=== PATIENT | female | born 1955 | race African-American/Black ===

== ENCOUNTER 2023-10-09 19:31 | Emergency (ER) | payer MEDICARE, MEDICAID ==
[~2023-10-09] VITALS: Ht 167.6 cm; Wt 69.0 kg
[2023-10-09 19:36] VITALS: TEMP 98.9; O2SAT 99
[2023-10-09] MEDS ORDERED: IPRATROPIUM/ALBUTEROL 0.5-3(2.5)MG/3ML NEB HHN ONE (19:45)
[2023-10-09] MEDS ORDERED: ALBUTEROL (0.083%) 2.5MG/3ML NEB HHN ONE (19:45)
[2023-10-09] MEDS ORDERED: METHYLPREDNISOLONE SOD SUCC 125MG/2ML (ACT-O-VIAL) IV ONE (19:45)
[2023-10-09 19:46] VITALS: RESP 35
[2023-10-09 20:39] VITALS: RESP 27
[2023-10-09 20:46] LABS: BASOPHILS % 0.6 % (0.0-2.0); EOSINOPHILS % 1.1 % (0.0-5.0); HEMATOCRIT. 35.3 % (36.0-48.0); HEMOGLOBIN. 11.5 g/dL (12.0-16.0); MEAN CORPUSCULAR HEMOGLOBIN 27.4 pg (28.0-32.0); MEAN CORPUSCULAR HGB CONC 32.6 g/dL (31.0-37.0); MEAN CORPUSCULAR VOLUME 83.9 fL (81.0-99.0); MEAN PLATELET VOLUME 9.5 fl (7.4-10.4); MONOCYTES % 8.8 % (2.0-8.0); NEUTROPHILS % 81.5 % (40.0-76.0); PLATELET 114 x1000/uL (130-400); RED BLOOD CELL COUNT 4.21 mill/uL (4.2-5.4); RED CELL DISTRIBUTION WIDTH 17.6 % (11.6-14.6); WHITE BLOOD COUNT 7.5 x1000/uL (4.5-11.0)
[2023-10-09 21:01] LABS: ALANINE AMINOTRANSFERASE 32 IU/L (10-49); ALBUMIN 3.8 g/dL (3.2-4.8); ASPARTATE AMINOTRANSFERASE 35 IU/L (<34); BILIRUBIN TOTAL 0.4 mg/dL (0.1-1.0); CALCIUM 9.6 mg/dL (8.7-10.4); CARBON DIOXIDE 28 mEq/L (21-32); CHLORIDE 102 mEq/L (98-107); GLUCOSE 122 mg/dL (70-105); POTASSIUM 4.1 mEq/L (3.5-5.1); PROTEIN TOTAL 6.5 g/dL (6.0-8.3); SODIUM 142 mEq/L (136-145); UREA NITROGEN BLOOD 38 mg/dL (9-23)
[2023-10-09 21:06] LABS: CREATININE 7.3 mg/dL (0.6-1.0)
[2023-10-09 21:07] LABS: TROPONIN I HIGH SENSITIVITY 72 ng/L (3.0-34)
[2023-10-09 22:00] VITALS: BP 182/91; PULSE 108; RESP 22
[2023-10-09] MEDS ORDERED: ASPIRIN 325MG EC TABLET PO ONE (22:00)
[2023-10-10] MEDS ORDERED: HYDR25TA MT (09:55)
[2023-10-10] MEDS ORDERED: SEVE800T25 PO (09:57)
[2023-10-10] MEDS ORDERED: AMLO10TA80 MT (09:57)
[2023-10-11] MEDS ORDERED: ASPI-1406 PO (14:16)
== END 2023-10-09 22:08 | disposition left against medical advice (07) ==
LOC: ER 19:31 → EDBEDREQ 21:13 → ER 22:08 → CANBEDREQ 10-11 10:17
DX: J44.1 Chronic obstructive pulmonary disease with (acute) exacerbation (principal); I10 Essential (primary) hypertension; F17.200 Nicotine dependence, unspecified, uncomplicated; Z99.2 Dependence on renal dialysis
CPT/HCPCS: 99291; 96374; 80053; 83880; 85025; 84484; 36415; 71045; 94640; 93005; J2930

== ENCOUNTER 2023-10-13 19:45 | Emergency (ER) | payer MEDICARE, MEDICAID ==
[~2023-10-13] VITALS: Ht 167.6 cm; Wt 70.0 kg
[~2023-10-13 19:45] MED LIST: AMLO10TA80 MT; ASPI-1406 PO; HYDR25TA MT; SEVE800T25 PO
[2023-10-13 19:54] VITALS: TEMP 98.5; O2SAT 99
[2023-10-13 22:50] VITALS: BP 156/86; PULSE 103; RESP 16
== END 2023-10-13 22:54 | disposition home or self-care (01) ==
LOC: ER 19:45
DX: Z00.00 Encounter for general adult medical examination without abnormal findings (principal); J44.9 Chronic obstructive pulmonary disease, unspecified; I10 Essential (primary) hypertension
CPT/HCPCS: 99283

== ENCOUNTER 2023-11-27 07:43 | Emergency (ER) | payer MEDICARE, MEDICAID ==
[~2023-11-27] VITALS: Ht 167.6 cm; Wt 64.0 kg
[~2023-11-27 07:43] MED LIST changes: +P20 PO
[2023-11-27 07:58] VITALS: BP 166/62; RESP 19; O2SAT 89
[2023-11-27 08:00] VITALS: PULSE 90
== END 2023-11-27 10:42 | disposition left against medical advice (07) ==
LOC: ER 07:43
DX: R06.02 Shortness of breath (principal); Z53.21 Procedure and treatment not carried out due to patient leaving prior to being seen by health care provider
CPT/HCPCS: 93005; 99281

== ENCOUNTER 2023-12-04 17:00 | Emergency (ER) | payer MEDICARE, MEDICAID ==
[~2023-12-04] VITALS: Ht 160 cm; Wt 61.0 kg
[2023-12-04] MEDS ORDERED: PREDNISONE 20MG TABLET PO STA (17:19)
[2023-12-04 17:30] VITALS: BP 146/89; TEMP 98
[2023-12-04 17:45] VITALS: PULSE 135; RESP 38; O2SAT 88
[2023-12-04] MEDS ORDERED: DEXAMETHASONE 4MG/ML 1ML VIAL IV ONE (17:45)
[2023-12-04] MEDS: ALBUTEROL (0.083%) 2.5MG/3ML NEB HHN STA (17:46)
[2023-12-04] MEDS: IPRATROPIUM BROMIDE (0.02%) 0.5MG/2.5ML NEB HHN STA (17:46)
[2023-12-04 17:54] LABS: BASOPHILS % 0.3 % (0.0-2.0); EOSINOPHILS % 0.4 % (0.0-5.0); HEMATOCRIT. 33.6 % (36.0-48.0); MEAN CORPUSCULAR HEMOGLOBIN 28.7 pg (28.0-32.0); MEAN CORPUSCULAR HGB CONC 32.8 g/dL (31.0-37.0); MEAN CORPUSCULAR VOLUME 87.6 fL (81.0-99.0); MEAN PLATELET VOLUME 10.9 fl (7.4-10.4); MONOCYTES % 3.3 % (2.0-8.0); PLATELET 96 x1000/uL (130-400); RED BLOOD CELL COUNT 3.83 mill/uL (4.2-5.4); RED CELL DISTRIBUTION WIDTH 18.4 % (11.6-14.6); WHITE BLOOD COUNT 10.8 x1000/uL (4.5-11.0)
[2023-12-04 18:00] LABS: INR 1.1; PROTHROMBIN TIME 11.6 sec (9.6-11.0)
[2023-12-04 18:11] LABS: ALANINE AMINOTRANSFERASE 74 IU/L (10-49); ALBUMIN 3.8 g/dL (3.2-4.8); ASPARTATE AMINOTRANSFERASE 44 IU/L (<34); BILIRUBIN TOTAL 0.6 mg/dL (0.1-1.0); CALCIUM 9.3 mg/dL (8.7-10.4); CARBON DIOXIDE 26 mEq/L (21-32); CHLORIDE 98 mEq/L (98-107); GLUCOSE 127 mg/dL (70-105); POTASSIUM 4.2 mEq/L (3.5-5.1); PROTEIN TOTAL 6.5 g/dL (6.0-8.3); SODIUM 135 mEq/L (136-145); UREA NITROGEN BLOOD 70 mg/dL (9-23)
[2023-12-04 18:13] LABS: CREATININE 8.3 mg/dL (0.6-1.0); TROPONIN I HIGH SENSITIVITY 158 ng/L (3.0-34)
== END 2023-12-04 19:40 | disposition left against medical advice (07) ==
LOC: ER 17:00
DX: J44.1 Chronic obstructive pulmonary disease with (acute) exacerbation (principal); I10 Essential (primary) hypertension; Z79.899 Other long term (current) drug therapy
CPT/HCPCS: 80053; 85025; 85610; 84484; 36415; 71045; 94640; 93005; 99285; J7512; Z7610 ×3

== ENCOUNTER 2024-02-02 03:24 | Emergency (ER) | payer MEDICARE, MEDICAID ==
[~2024-02-02] VITALS: Ht 175.3 cm; Wt 70.0 kg
[2024-02-02 03:36] VITALS: RESP 22
[2024-02-02 03:42] VITALS: TEMP 98.4
[2024-02-02] MEDS ORDERED: ALBUTEROL (0.083%) 2.5MG/3ML NEB HHN STA (04:12)
[2024-02-02] MEDS ORDERED: IPRATROPIUM BROMIDE (0.02%) 0.5MG/2.5ML NEB HHN STA (04:12)
[2024-02-02] MEDS: METHYLPREDNISOLONE SOD SUCC 125MG/2ML (ACT-O-VIAL) IV STA (04:22)
[2024-02-02 05:50] VITALS: BP 130/56
[2024-02-02] MEDS: ALBUTEROL (0.083%) 2.5MG/3ML NEB HHN NR (06:26)
[2024-02-02 06:27] VITALS: PULSE 92; RESP 20; O2SAT 99
[2024-02-02] MEDS: IPRATROPIUM BROMIDE (0.02%) 0.5MG/2.5ML NEB HHN NR (06:27)
== END 2024-02-02 06:24 | disposition left against medical advice (07) ==
LOC: ER 04:13
DX: J44.9 Chronic obstructive pulmonary disease, unspecified (principal); I10 Essential (primary) hypertension; E11.9 Type 2 diabetes mellitus without complications; Z91.041 Radiographic dye allergy status; Z88.5 Allergy status to narcotic agent; Z53.21 Procedure and treatment not carried out due to patient leaving prior to being seen by health care provider
CPT/HCPCS: 71045; 94640; 96374; 99291; J2930; Z7610 ×3; 94660

== ENCOUNTER 2024-07-02 18:18 | Emergency (ER) | payer MEDICARE, BC ==
[~2024-07-02] VITALS: Ht 162.6 cm; Wt 54.0 kg
[~2024-07-02 18:18] MED LIST changes: -ASPI-1406 PO
[2024-07-02 18:19] VITALS: O2SAT 100
[2024-07-02 18:30] VITALS: BP 132/66; PULSE 87; RESP 18; TEMP 36.89184; O2SAT 100
[2024-07-02] MEDS ORDERED: ALBUTEROL (0.083%) 2.5MG/3ML NEB HHN STA (18:35)
[2024-07-02] MEDS ORDERED: IPRATROPIUM BROMIDE (0.02%) 0.5MG/2.5ML NEB HHN STA (18:35)
[2024-07-02] MEDS: PREDNISONE 20MG TABLET PO STA (19:06)
[2024-07-02] MEDS ORDERED: P20 MT (20:12)
[2024-07-02] MEDS ORDERED: ALBU6.7H15 INH (20:12)
[2024-07-15] MEDS ORDERED: AZIT500T8 PO (09:35)
[2024-07-15] MEDS ORDERED: ASPI-1160 PO (09:35)
[2024-07-15] MEDS ORDERED: CLON0.1T PO (09:35)
[2024-07-15] MEDS ORDERED: FURO40TA5 MT (09:35)
== END 2024-07-02 20:13 | disposition home or self-care (01) ==
LOC: ER 18:18
DX: J44.1 Chronic obstructive pulmonary disease with (acute) exacerbation (principal); I12.0 Hypertensive chronic kidney disease with stage 5 chronic kidney disease or end stage renal disease; N18.6 End stage renal disease; Z99.2 Dependence on renal dialysis; Z88.6 Allergy status to analgesic agent; Z88.5 Allergy status to narcotic agent; Z88.8 Allergy status to other drugs, medicaments and biological substances; Z96.653 Presence of artificial knee joint, bilateral
CPT/HCPCS: 99283; J7512; Z7610

== ENCOUNTER 2024-07-18 10:07 | Inpatient (IN) | payer MEDICARE, MEDICAID ==
[~2024-07-18] VITALS: Ht 167.6 cm; Wt 79.4 kg
[~2024-07-18 10:07] MED LIST changes: +ALBU6.7H15 INH; +ASPI-1160 PO; +AZIT500T8 PO; +CLON0.1T PO; +FURO40TA5 MT; +P20 MT
[2024-07-18] MEDS ORDERED: IPRATROPIUM BROMIDE (0.02%) 0.5MG/2.5ML NEB HHN STA (10:28)
[2024-07-18] MEDS ORDERED: ALBUTEROL (0.083%) 2.5MG/3ML NEB HHN STA (10:28)
[2024-07-18] MEDS: MAGNESIUM 2 G PREMIX 50 ML IV ONE (10:43)
[2024-07-18] MEDS: METHYLPREDNISOLONE SOD SUCC 125MG/2ML (ACT-O-VIAL) IV STA (10:43)
[2024-07-18 10:57] LABS: HEMATOCRIT. 25.8 % (36.0-48.0); HEMOGLOBIN. 8.1 g/dL (12.0-16.0); MEAN CORPUSCULAR HEMOGLOBIN 28.5 pg (28.0-32.0); MEAN CORPUSCULAR HGB CONC 31.3 g/dL (31.0-37.0); MEAN CORPUSCULAR VOLUME 90.8 fL (81.0-99.0); MEAN PLATELET VOLUME 9.8 fl (7.4-10.4); PLATELET 141 x1000/uL (130-400); RED BLOOD CELL COUNT 2.84 mill/uL (4.2-5.4); RED CELL DISTRIBUTION WIDTH 20.5 % (11.6-14.6); WHITE BLOOD COUNT 9.9 x1000/uL (4.5-11.0)
[2024-07-18 11:00] LABS: DIFFERENTIAL COMMENT 1
[2024-07-18 11:02] LABS: CHLORIDE 96 mEq/L (98-107); POTASSIUM 3.6 mEq/L (3.5-5.1); SODIUM 135 mEq/L (136-145)
[2024-07-18 11:03] LABS: CALCIUM 8.8 mg/dL (8.7-10.4); CARBON DIOXIDE 31 mEq/L (21-32)
[2024-07-18 11:08] LABS: CREATININE 4.2 mg/dL (0.6-1.0); GLUCOSE 174 mg/dL (70-105); UREA NITROGEN BLOOD 24 mg/dL (9-23)
[2024-07-18 11:15] LABS: TROPONIN I HIGH SENSITIVITY 569 ng/L (3.0-34)
[2024-07-18 11:32] LABS: ANISOCYTOSIS 3+; PLATELET ESTIMATE NORMAL
[2024-07-18 12:27] LABS: HEPATITIS B SURFACE ANTIGEN NEGATIVE (Negative)
[2024-07-18] MEDS: IPRATROPIUM BROMIDE (0.02%) 0.5MG/2.5ML NEB HHN NR (12:43)
[2024-07-18] MEDS: ALBUTEROL (0.083%) 2.5MG/3ML NEB HHN NR (12:43)
[2024-07-18 12:44] LABS: TROPONIN I HIGH SENSITIVITY 582 ng/L (3.0-34)
[2024-07-18 12:48] LABS: HEPATITIS A AB IGM NEGATIVE (Negative)
[2024-07-18 12:49] LABS: HEPATITIS B CORE AB IGM NEGATIVE (Negative); HEPATITIS C AB REACTIVE (Pos) (Negative)
[2024-07-18 13:10] VITALS: PULSE 95; RESP 22; O2SAT 95
[2024-07-18] MEDS: ENOXAPARIN 60MG/0.6ML SYR SUBCUT ONE (13:40)
[2024-07-18] MEDS: ASPIRIN 325MG TABLET PO ONE (13:45)
[2024-07-18] MEDS ORDERED: GUAIFENESIN 200MG/10ML SUGAR FREE UDC PO PRN (16:30)
[2024-07-18] MEDS ORDERED: ACETAMINOPHEN 325MG TABLET PO PRN ×2 (16:30)
[2024-07-18] MEDS ORDERED: CLONIDINE 0.1MG TABLET PO PRN (16:30)
[2024-07-18] MEDS ORDERED: ONDANSETRON HCL 4MG/2ML INJ IV PRN (16:30)
[2024-07-18] MEDS ORDERED: MAGNESIUM/ALUMINUM HYDROXIDE/SIMETHICONE 30ML UDC PO PRN (16:30)
[2024-07-18] MEDS ORDERED: DOCUSATE SODIUM 100MG CAPSULE PO PRN (16:30)
[2024-07-18] MEDS ORDERED: DEXTROSE 50% WATER 50ML SYRINGE IV PRN (17:45)
[2024-07-18] MEDS: INSULIN LISPRO 100 UNITS/ML SUBCUT SCH (18:10)
[2024-07-18 18:17] LABS: IRON 57 ug/dL (50-170)
[2024-07-18 18:20] LABS: PHOSPHORUS 4.3 mg/dL (2.5-4.9); TOTAL IRON BINDING CAPACITY 138 ug/dl (250-425)
[2024-07-18] MEDS: FUROSEMIDE 40MG/4ML VIAL IVP SCH (18:22)
[2024-07-18 18:23] LABS: FERRITIN 226 ng/mL (10-291)
[2024-07-18 18:24] LABS: FOLIC ACID (FOLATE) SERUM 5.79 ng/mL (>5.38); VITAMIN B12 SERUM 1806 pg/mL (211-911)
[2024-07-18] MEDS: BLOOD SUGAR DIAGNOSTIC STRIP TEST SCH (18:40)
[2024-07-18] MEDS: METHYLPREDNISOLONE SOD SUCC 40MG/ML (ACT-O-VIAL) IV SCH (18:40)
[2024-07-18 20:22] LABS: INR 1.1; PARTIAL THROMBOPLASTIN TIME 24.7 sec (23.4-31.0); PROTHROMBIN TIME 12.1 sec (9.6-11.0)
[2024-07-18] MEDS: FAMOTIDINE 20MG TABLET PO SCH (21:35)
[2024-07-18 23:08] VITALS: BP 128/88; PULSE 92; RESP 16; TEMP 36.9184
[2024-07-19] VITALS (17 sets, daily range): BP systolic 94–137; BP diastolic 59–114; PULSE 78–99; RESP 10–28; TEMP 36.28068–37.00296; O2SAT 90–100
[2024-07-19 00:13] LABS: CREATINE KINASE MB FRACTION 7.7 ng/mL (0.5-3.6)
[2024-07-19] MEDS: IPRATROPIUM/ALBUTEROL 0.5-3(2.5)MG/3ML NEB HHN SCH ×2 (02:21→16:00)
[2024-07-19] MEDS: ACETYLCYSTEINE 200MG/ML 20% VIAL 4ML INH SCH (02:23)
[2024-07-19 07:48] LABS: CHLORIDE 92 mEq/L (98-107)
[2024-07-19 07:49] LABS: CALCIUM 8.9 mg/dL (8.7-10.4); CARBON DIOXIDE 26 mEq/L (21-32); SODIUM 129 mEq/L (136-145)
[2024-07-19 07:54] LABS: GLUCOSE 214 mg/dL (70-105); TRIGLYCERIDE 55 mg/dL (0-150)
[2024-07-19 07:55] LABS: LDL CHOLESTEROL 30 mg/dL (5-100); UREA NITROGEN BLOOD 46 mg/dL (9-23)
[2024-07-19 07:56] LABS: ALANINE AMINOTRANSFERASE 38 IU/L (10-49); ALBUMIN 3.5 g/dL (3.2-4.8); ASPARTATE AMINOTRANSFERASE 48 IU/L (<34); CHOLESTEROL 93 mg/dL (<200); CREATINE KINASE MB FRACTION 8.6 ng/mL (0.5-3.6)
[2024-07-19 07:57] LABS: BILIRUBIN DIRECT 0.4 mg/dL (<=3.0); BILIRUBIN TOTAL 0.5 mg/dL (0.1-1.0); HDL CHOLESTEROL 39 mg/dL (>65); POTASSIUM 5.9 mEq/L (3.5-5.1); PROTEIN TOTAL 6.3 g/dL (6.0-8.3)
[2024-07-19 07:58] LABS: CREATININE 5.3 mg/dL (0.6-1.0); T4 FREE 0.98 ng/dL (0.89-1.76)
[2024-07-19 07:59] LABS: THYROID STIMULATING HORMONE 4.15 uIU/mL (0.55-4.78)
[2024-07-19 08:06] LABS: HEMATOCRIT. 25.2 % (36.0-48.0); HEMOGLOBIN. 7.8 g/dL (12.0-16.0); MEAN CORPUSCULAR HEMOGLOBIN 27.6 pg (28.0-32.0); MEAN CORPUSCULAR HGB CONC 30.8 g/dL (31.0-37.0); MEAN CORPUSCULAR VOLUME 89.7 fL (81.0-99.0); MEAN PLATELET VOLUME 9.9 fl (7.4-10.4); PLATELET 138 x1000/uL (130-400); RED BLOOD CELL COUNT 2.81 mill/uL (4.2-5.4); RED CELL DISTRIBUTION WIDTH 20.1 % (11.6-14.6); WHITE BLOOD COUNT 8.8 x1000/uL (4.5-11.0)
[2024-07-19] MEDS ORDERED: SODIUM POLYSTYRENE SULFONATE 15 G/60 ML BOT PO ONE (08:15)
[2024-07-19 08:23] LABS: DIFFERENTIAL COMMENT 1
[2024-07-19 08:50] LABS: PHOSPHORUS 6.4 mg/dL (2.5-4.9)
[2024-07-19] MEDS: ASPIRIN 81MG EC TABLET PO SCH (10:26)
[2024-07-19] MEDS: ISOSORBIDE MONONITRATE 60MG TABLET SR 24HR PO SCH (10:26)
[2024-07-19] MEDS: AMLODIPINE 10MG TABLET PO SCH (10:27)
[2024-07-19] MEDS: SODIUM ZIRCONIUM CYCLOSILICATE 10GM/PACKET PO NR (10:27)
[2024-07-19] MEDS: ENOXAPARIN 30MG/0.3ML SYR SUBCUT SCH (10:28)
[2024-07-19] MEDS: FOLIC ACID/VITAMIN B COMP W-C TABLET PO SCH (10:40)
[2024-07-19] MEDS: INSULIN REGULAR (HUMULIN R) 1000UNITS/10ML VIAL IV NR (10:42)
[2024-07-19] MEDS: SODIUM BICARBONATE 8.4% 50MEQ/50ML SYR IV NR (10:43)
[2024-07-19] MEDS: DEXTROSE 50% WATER 50ML SYRINGE IV NR (10:44)
[2024-07-19] MEDS: IPRATROPIUM/ALBUTEROL 0.5-3(2.5)MG/3ML NEB HHN PRN (11:48)
[2024-07-19] MEDS: BUDESONIDE 0.5MG/2ML NEB HHN SCH (13:00)
[2024-07-19] MEDS: SEVELAMER CARBONATE 800 MG TABLET PO SCH (13:06)
[2024-07-19 15:53] LABS: CREATINE KINASE MB FRACTION 9.8 ng/mL (0.5-3.6)
[2024-07-19 19:27] LABS: ANISOCYTOSIS 1+; PLATELET ESTIMATE NORMAL
[2024-07-20] VITALS: BP 118/76; PULSE 95; RESP 20; TEMP 36.114; O2SAT 99
[2024-07-20 02:56] VITALS: PULSE 82; RESP 24; O2SAT 97
[2024-07-20 04:00] VITALS: BP 128/98; PULSE 88; RESP 18; TEMP 36.44736; O2SAT 100
[2024-07-20 06:55] LABS: CALCIUM 9.2 mg/dL (8.7-10.4)
[2024-07-20] MEDS: SODIUM POLYSTYRENE SULFONATE 15 G/60 ML BOT PO NR (07:15)
[2024-07-20] MEDS: CALCIUM CHLORIDE 1GM/10ML SYR IV NR (07:15)
[2024-07-20] MEDS: ALBUTEROL (0.083%) 2.5MG/3ML NEB HHN NR (07:15)
[2024-07-20] MEDS: SODIUM BICARBONATE 8.4% 50MEQ/50ML SYR IV NR (07:15)
[2024-07-20 07:49] LABS: HEMATOCRIT. 22.9 % (36.0-48.0); MEAN CORPUSCULAR HEMOGLOBIN 27.6 pg (28.0-32.0); MEAN CORPUSCULAR HGB CONC 30.8 g/dL (31.0-37.0); MEAN CORPUSCULAR VOLUME 89.6 fL (81.0-99.0); MEAN PLATELET VOLUME 11.1 fl (7.4-10.4); PLATELET 152 x1000/uL (130-400); RED BLOOD CELL COUNT 2.55 mill/uL (4.2-5.4); RED CELL DISTRIBUTION WIDTH 19.7 % (11.6-14.6)
[2024-07-20 08:00] VITALS: BP 113/78; PULSE 81; RESP 18; TEMP 36.3918; TEMP 36.39180; O2SAT 99
[2024-07-20 09:08] LABS: DIFFERENTIAL COMMENT 1
[2024-07-21 16:59] LABS: NUCLEATED RED BLOOD CELLS 1 /100 WBC
[2024-07-21 17:00] LABS: ANISOCYTOSIS 2+; HYPOCHROMASIA 1+; PLATELET ESTIMATE NORMAL
== END 2024-07-20 12:43 | disposition left against medical advice (07) | DRG 190 ==
LOC: ER 10:23 → EDBEDREQTM 13:07 → EDBEDREQ 13:07 → 5EST 22:11
PROVIDERS: ADMIT Internal Medicine; ATTEND Internal Medicine
PROC: 5A1D70Z Performance of Urinary Filtration, Intermittent, Less than 6 Hours Per Day (ICD-10-PCS; principal; 2024-07-19)
DX: I21.4 Non-ST elevation (NSTEMI) myocardial infarction (principal); J96.21 Acute and chronic respiratory failure with hypoxia; I50.23 Acute on chronic systolic (congestive) heart failure; D63.1 Anemia in chronic kidney disease; E83.39 Other disorders of phosphorus metabolism; E87.1 Hypo-osmolality and hyponatremia; I42.9 Cardiomyopathy, unspecified; E78.5 Hyperlipidemia, unspecified; J44.1 Chronic obstructive pulmonary disease with (acute) exacerbation; I13.2 Hypertensive heart and chronic kidney disease with heart failure and with stage 5 chronic kidney disease, or end stage renal disease; D50.9 Iron deficiency anemia, unspecified; B19.20 Unspecified viral hepatitis C without hepatic coma; E11.22 Type 2 diabetes mellitus with diabetic chronic kidney disease; E11.65 Type 2 diabetes mellitus with hyperglycemia; E87.5 Hyperkalemia; I08.3 Combined rheumatic disorders of mitral, aortic and tricuspid valves; I49.1 Atrial premature depolarization; D25.9 Leiomyoma of uterus, unspecified; N18.6 End stage renal disease; Z53.29 Procedure and treatment not carried out because of patient's decision for other reasons; Z79.82 Long term (current) use of aspirin; Z79.899 Other long term (current) drug therapy; Z85.05 Personal history of malignant neoplasm of liver; Z85.43 Personal history of malignant neoplasm of ovary; Z88.6 Allergy status to analgesic agent; Z91.041 Radiographic dye allergy status; Z92.21 Personal history of antineoplastic chemotherapy; Z96.653 Presence of artificial knee joint, bilateral; Z99.2 Dependence on renal dialysis; Z99.81 Dependence on supplemental oxygen
CPT/HCPCS: 36415; 71045; 80048; 80061; 80076; 82550; 82553; 82607; 82728; 82746; 82962; 83036; 83540; 83550; 83735; 83880; 84100; 84439; 84443; 84484; 85025; 85379; 86705; 86709; 87340; 90935; 93005; 93306; 93308; 94640; 97166; 99291; J1650; J1815; J1940; J2920; J3490; J7608; J7626

== ENCOUNTER 2024-07-21 07:15 | Inpatient (IN) | payer MEDICARE, MEDICAID ==
[~2024-07-21] VITALS: Ht 167.6 cm; Wt 75.3 kg
[2024-07-21] VITALS (11 sets, daily range): BP systolic 114–124; BP diastolic 47–63; PULSE 88–104; RESP 16–29; TEMP 36.6696–36.78072; O2SAT 97
[2024-07-21] MEDS: METHYLPREDNISOLONE SOD SUCC 125MG/2ML (ACT-O-VIAL) IV STA (08:07)
[2024-07-21] MEDS: IPRATROPIUM BROMIDE (0.02%) 0.5MG/2.5ML NEB HHN STA (08:15)
[2024-07-21] MEDS: ALBUTEROL (0.083%) 2.5MG/3ML NEB HHN STA (08:15)
[2024-07-21 08:27] LABS: BASOPHILS % 0.2 % (0.0-2.0); DIFFERENTIAL COMMENT 0; EOSINOPHILS % 0.2 % (0.0-5.0); HEMATOCRIT. 25.4 % (36.0-48.0); HEMOGLOBIN. 7.4 g/dL (12.0-16.0); LYMPHOCYTES % 10.1 % (20.0-50.0); MEAN CORPUSCULAR HEMOGLOBIN 27.7 pg (28.0-32.0); MEAN CORPUSCULAR HGB CONC 29.2 g/dL (31.0-37.0); MEAN CORPUSCULAR VOLUME 94.7 fL (81.0-99.0); MEAN PLATELET VOLUME 11.1 fl (7.4-10.4); MONOCYTES % 8.5 % (2.0-8.0); PLATELET 197 x1000/uL (130-400); RED BLOOD CELL COUNT 2.68 mill/uL (4.2-5.4); RED CELL DISTRIBUTION WIDTH 21.3 % (11.6-14.6); WHITE BLOOD COUNT 16.7 x1000/uL (4.5-11.0)
[2024-07-21 08:39] LABS: CALCIUM 9.9 mg/dL (8.7-10.4)
[2024-07-21 08:45] LABS: BG BASE EXCESS -8.2 mmol/L (-2.0-3.0); BG CARBOXYHEMOGLOBIN 2.3 % (0.5-1.5); BG DEOXYHEMOGLOBIN 0.3 % (0.0-5.0); BG FRACTION INSPIRED OXYGEN 60; BG HCO3 ACT 18.9 mmol/L (21.0-28.0); BG METHEMOGLOBIN 0.1 % (0.5-1.5); BG OXYGEN SATURATION 99.7 % (94.0-98.0); BG OXYHEMOGLOBIN 97.3 % (94.0-98.0); BG PH 7.231 (7.350-7.450); BG PO2 168.2 mmHg (83.0-108.0); BG SAMPLE SITE RIGHT BRACHIAL; BG TOTAL HEMOGLOBIN 8.4 g/dL (12.0-16.0); BG VENT MODE HHN
[2024-07-21 08:54] LABS: CREATININE 6.9 mg/dL (0.6-1.0); POTASSIUM 7.4 mEq/L (3.5-5.1)
[2024-07-21] MEDS: ALBUTEROL (0.083%) 2.5MG/3ML NEB HHN ONE (09:00)
[2024-07-21] MEDS: SODIUM CHLORIDE 0.9% 250 ML IV ONE (09:06)
[2024-07-21] MEDS: INSULIN REGULAR (HUMULIN R) 1000UNITS/10ML VIAL IV ONE (09:18)
[2024-07-21] MEDS: CALCIUM CHLORIDE 1GM/10ML SYR IV ONE (09:18)
[2024-07-21] MEDS: DEXTROSE 50% WATER 50ML SYRINGE IV ONE (09:18)
[2024-07-21] MEDS: SODIUM BICARBONATE 8.4% 50MEQ/50ML SYR IV ONE (09:19)
[2024-07-21] MEDS: PIPERACILLIN/TAZO 3.375G/50ML 50 ML IV ONE (09:26)
[2024-07-21] MEDS: VANCOMYCIN 1G PREMIX 200 ML IV ONE (09:48)
[2024-07-21 09:52] LABS: LACTIC ACID 5.7 mmol/L (0.4-2.0)
[2024-07-21 11:41] LABS: HEPATITIS B SURFACE ANTIGEN NEGATIVE (Negative)
[2024-07-21 12:02] LABS: HEPATITIS A AB IGM NEGATIVE (Negative); HEPATITIS B CORE AB IGM NEGATIVE (Negative)
[2024-07-21 12:03] LABS: HEPATITIS C AB REACTIVE (Pos) (Negative)
[2024-07-21] MEDS ORDERED: DOCUSATE SODIUM 100MG CAPSULE PO PRN (20:00)
[2024-07-21] MEDS ORDERED: IPRATROPIUM/ALBUTEROL 0.5-3(2.5)MG/3ML NEB HHN PRN (20:00)
[2024-07-21] MEDS ORDERED: HYDRALAZINE 20MG/ML VIAL IV PRN (20:45)
[2024-07-21] MEDS: ATORVASTATIN CALCIUM 20MG TABLET PO SCH (21:22)
[2024-07-21 21:51] LABS: BG BASE EXCESS -0.9 mmol/L (-2.0-3.0); BG CARBOXYHEMOGLOBIN 1.4 % (0.5-1.5); BG DEOXYHEMOGLOBIN 0.4 % (0.0-5.0); BG HCO3 ACT 25.7 mmol/L (21.0-28.0); BG METHEMOGLOBIN 0.4 % (0.5-1.5); BG OXYGEN SATURATION 99.6 % (94.0-98.0); BG OXYHEMOGLOBIN 97.8 % (94.0-98.0); BG PCO2 53.6 mmHg (32.0-45.0); BG PH 7.299 (7.350-7.450); BG PO2 160.2 mmHg (83.0-108.0); BG SAMPLE SITE RIGHT BRACHIAL; BG TOTAL HEMOGLOBIN 8.3 g/dL (12.0-16.0)
[2024-07-21] MEDS: VANCOMYCIN 500MG/100ML IV SCH (22:02)
[2024-07-21 22:07] LABS: CALCIUM 9.9 mg/dL (8.7-10.4)
[2024-07-21 22:15] LABS: CREATINE KINASE MB FRACTION 16.7 ng/mL (0.5-3.6); LACTIC ACID 3.4 mmol/L (0.4-2.0)
[2024-07-21 22:23] LABS: CREATININE 5.6 mg/dL (0.6-1.0)
[2024-07-21 22:41] LABS: POTASSIUM 6.3 mEq/L (3.5-5.1)
[2024-07-21] MEDS ORDERED: ALBUTEROL (0.083%) 2.5MG/3ML NEB HHN NR (23:00)
[2024-07-22] VITALS (21 sets, daily range): BP systolic 94–118; BP diastolic 48–64; PULSE 81–113; RESP 12–26; TEMP 36.3918–37.05852; O2SAT 93–100
[2024-07-22] MEDS: INSULIN REGULAR (HUMULIN R) 1000UNITS/10ML VIAL IV NR ×2 (01:36→13:34)
[2024-07-22] MEDS: ACETAMINOPHEN 650MG/20.3ML UDC GT PRN (01:36)
[2024-07-22] MEDS: FUROSEMIDE 40MG/4ML VIAL IV NR (01:36)
[2024-07-22] MEDS: CALCIUM CHLORIDE 1GM/10ML SYR IV NR ×2 (01:37→13:30)
[2024-07-22] MEDS: SODIUM POLYSTYRENE SULFONATE 15 G/60 ML BOT PO NR (01:37)
[2024-07-22] MEDS: SODIUM BICARBONATE 8.4% 50MEQ/50ML SYR IV NR ×2 (01:37→13:32)
[2024-07-22] MEDS: DEXTROSE 50% WATER 50ML SYRINGE IV NR ×2 (01:38→13:31)
[2024-07-22] MEDS: IPRATROPIUM/ALBUTEROL 0.5-3(2.5)MG/3ML NEB HHN SCH (02:35)
[2024-07-22] MEDS: AMLODIPINE 10MG TABLET PO SCH (09:00)
[2024-07-22] MEDS: PANTOPRAZOLE SODIUM 40 MG/VIAL IV SCH (09:29)
[2024-07-22] MEDS: PIPERACILLIN/TAZO 3.375G/50ML 50 ML IV SCH (09:29)
[2024-07-22] MEDS: SEVELAMER CARBONATE 800 MG TABLET PO SCH (09:30)
[2024-07-22] MEDS: ASPIRIN 81MG TABLET PO SCH (09:30)
[2024-07-22] MEDS: METHYLPREDNISOLONE SOD SUCC 40MG/ML (ACT-O-VIAL) IV SCH (09:30)
[2024-07-22] MEDS: FOLIC ACID/VITAMIN B COMP W-C TABLET PO SCH (09:30)
[2024-07-22 11:00] LABS: HEMATOCRIT. 24.7 % (36.0-48.0); HEMOGLOBIN. 7.3 g/dL (12.0-16.0); MEAN CORPUSCULAR HEMOGLOBIN 27.8 pg (28.0-32.0); MEAN CORPUSCULAR HGB CONC 29.5 g/dL (31.0-37.0); MEAN CORPUSCULAR VOLUME 94.2 fL (81.0-99.0); MEAN PLATELET VOLUME 11.1 fl (7.4-10.4); PLATELET 186 x1000/uL (130-400); RED BLOOD CELL COUNT 2.62 mill/uL (4.2-5.4); RED CELL DISTRIBUTION WIDTH 21.6 % (11.6-14.6); WHITE BLOOD COUNT 12.8 x1000/uL (4.5-11.0)
[2024-07-22 11:05] LABS: CHLORIDE 95 mEq/L (98-107); SODIUM 131 mEq/L (136-145)
[2024-07-22 11:06] LABS: CARBON DIOXIDE 26 mEq/L (21-32)
[2024-07-22 11:08] LABS: DIFFERENTIAL COMMENT 1
[2024-07-22 11:11] LABS: GLUCOSE 249 mg/dL (70-105)
[2024-07-22 11:12] LABS: UREA NITROGEN BLOOD 68 mg/dL (9-23)
[2024-07-22 11:14] LABS: PHOSPHORUS 7.5 mg/dL (2.5-4.9)
[2024-07-22 11:54] LABS: ANISOCYTOSIS 3+; OVALOCYTES 1+; PLATELET ESTIMATE NORMAL
[2024-07-22 11:55] LABS: TARGET CELLS 1+
[2024-07-22 12:15] LABS: POTASSIUM 7.2 mEq/L (3.5-5.1); TROPONIN I HIGH SENSITIVITY 414 ng/L (3.0-34)
[2024-07-22] MEDS: SODIUM ZIRCONIUM CYCLOSILICATE 10GM/PACKET PO NR (13:32)
[2024-07-22] MEDS: MORPHINE SULFATE 2 MG/ML INJ (NOT FOR IM USE) IV PRN (14:59)
[2024-07-22 16:32] LABS: TROPONIN I HIGH SENSITIVITY 371 ng/L (3.0-34)
[2024-07-22 18:09] LABS: POTASSIUM 4.6 mEq/L (3.5-5.1)
[2024-07-22] MEDS: ATORVASTATIN CALCIUM 40MG TABLET PO SCH (22:22)
[2024-07-23] VITALS (15 sets, daily range): BP systolic 97–112; BP diastolic 47–66; PULSE 86–96; RESP 11–29; TEMP 35.78064–37.00296; O2SAT 84–99
[2024-07-23 10:37] LABS: POTASSIUM 5.4 mEq/L (3.5-5.1)
[2024-07-23 10:39] LABS: CALCIUM 10.2 mg/dL (8.7-10.4)
[2024-07-23 11:14] LABS: CREATININE 5.1 mg/dL (0.6-1.0)
[2024-07-23] MEDS: FERROUS SULFATE 325MG TABLET PO SCH (14:28)
[2024-07-23] MEDS: VANCOMYCIN 750MG PREMIX 150 ML IV SCH (14:28)
[2024-07-23 16:54] LABS: HEMATOCRIT. 23.7 % (36.0-48.0); HEMOGLOBIN. 7.2 g/dL (12.0-16.0); MEAN CORPUSCULAR HGB CONC 30.5 g/dL (31.0-37.0); MEAN CORPUSCULAR VOLUME 91.8 fL (81.0-99.0); MEAN PLATELET VOLUME 10.3 fl (7.4-10.4); PLATELET 142 x1000/uL (130-400); RED BLOOD CELL COUNT 2.58 mill/uL (4.2-5.4); RED CELL DISTRIBUTION WIDTH 21.4 % (11.6-14.6); WHITE BLOOD COUNT 10.9 x1000/uL (4.5-11.0)
[2024-07-23 16:55] LABS: DIFFERENTIAL COMMENT 1
[2024-07-23] MEDS: PREDNISONE 10MG TABLET PO SCH (18:50)
[2024-07-23 18:52] LABS: ANISOCYTOSIS 3+; HYPOCHROMASIA 1+; OVALOCYTES 1+; PLATELET ESTIMATE NORMAL
[2024-07-23 18:54] LABS: TARGET CELLS 1+
[2024-07-24] VITALS (20 sets, daily range): BP systolic 90–167; BP diastolic 46–68; PULSE 72–109; RESP 11–24; TEMP 36.16956–37.00296; O2SAT 94–100
[2024-07-24 05:56] LABS: CHLORIDE 98 mEq/L (98-107); POTASSIUM 6.1 mEq/L (3.5-5.1); SODIUM 135 mEq/L (136-145)
[2024-07-24 05:57] LABS: CARBON DIOXIDE 25 mEq/L (21-32)
[2024-07-24 06:02] LABS: GLUCOSE 263 mg/dL (70-105)
[2024-07-24 06:03] LABS: UREA NITROGEN BLOOD 66 mg/dL (9-23)
[2024-07-24 06:05] LABS: PHOSPHORUS 6.9 mg/dL (2.5-4.9)
[2024-07-24 06:10] LABS: HEMOGLOBIN. 7.4 g/dL (12.0-16.0); MEAN CORPUSCULAR HEMOGLOBIN 27.8 pg (28.0-32.0); MEAN CORPUSCULAR HGB CONC 29.6 g/dL (31.0-37.0); PLATELET 151 x1000/uL (130-400); RED BLOOD CELL COUNT 2.66 mill/uL (4.2-5.4); RED CELL DISTRIBUTION WIDTH 22.3 % (11.6-14.6); WHITE BLOOD COUNT 12.2 x1000/uL (4.5-11.0)
[2024-07-24 06:21] LABS: CREATININE 5.8 mg/dL (0.6-1.0)
[2024-07-24 07:51] LABS: DIFFERENTIAL COMMENT 1
[2024-07-24] MEDS: INSULIN LISPRO 100 UNITS/ML SUBCUT SCH (08:00)
[2024-07-24] MEDS: DEXTROSE 50% WATER 50ML SYRINGE IV NR (08:30)
[2024-07-24] MEDS: INSULIN REGULAR (HUMULIN R) 1000UNITS/10ML VIAL IV NR (08:30)
[2024-07-24] MEDS: SODIUM ZIRCONIUM CYCLOSILICATE 10GM/PACKET PO NR (08:30)
[2024-07-24] MEDS: SODIUM BICARBONATE 8.4% 50MEQ/50ML SYR IV NR (08:30)
[2024-07-24] MEDS: BLOOD SUGAR DIAGNOSTIC STRIP TEST SCH (12:30)
[2024-07-24 19:59] LABS: PLATELET ESTIMATE NORMAL
[2024-07-25] VITALS (66 sets, daily range): BP systolic 71–155; BP diastolic 35–141; PULSE 64–151; RESP 8–28; TEMP 36.114–37.39188; O2SAT 87–100
[2024-07-25 05:46] LABS: HEMATOCRIT. 24.9 % (36.0-48.0); HEMOGLOBIN. 7.3 g/dL (12.0-16.0); MEAN CORPUSCULAR HGB CONC 29.2 g/dL (31.0-37.0); MEAN CORPUSCULAR VOLUME 92.6 fL (81.0-99.0); MEAN PLATELET VOLUME 10.9 fl (7.4-10.4); PLATELET 155 x1000/uL (130-400); RED BLOOD CELL COUNT 2.68 mill/uL (4.2-5.4); RED CELL DISTRIBUTION WIDTH 21.8 % (11.6-14.6)
[2024-07-25 05:57] LABS: CARBON DIOXIDE 28 mEq/L (21-32); CHLORIDE 98 mEq/L (98-107); POTASSIUM 5.5 mEq/L (3.5-5.1); SODIUM 136 mEq/L (136-145)
[2024-07-25 05:59] LABS: CALCIUM 10.4 mg/dL (8.7-10.4)
[2024-07-25 06:03] LABS: CREATININE 4.9 mg/dL (0.6-1.0); GLUCOSE 149 mg/dL (70-105)
[2024-07-25 06:04] LABS: UREA NITROGEN BLOOD 63 mg/dL (9-23)
[2024-07-25 06:06] LABS: PHOSPHORUS 6.7 mg/dL (2.5-4.9)
[2024-07-25 06:19] LABS: DIFFERENTIAL COMMENT 1
[2024-07-25 12:18] LABS: ANISOCYTOSIS 2+; NUCLEATED RED BLOOD CELLS 7 /100 WBC; PLATELET ESTIMATE NORMAL
[2024-07-25] MEDS: PHENYLEPHRINE 50MG/250ML PMX 250 ML IV PRN (16:18)
[2024-07-25 17:10] LABS: HEMATOCRIT 27.9 % (36.0-48.0); HEMOGLOBIN 8.1 g/dL (12.0-16.0); MEAN CORPUSCULAR HEMOGLOBIN 27.7 pg (28.0-32.0); MEAN CORPUSCULAR VOLUME 95.3 fL (81.0-99.0); PLATELET 163 x1000/uL (130-400); RED BLOOD CELL COUNT 2.92 mill/uL (4.2-5.4); RED CELL DISTRIBUTION WIDTH 22.2 % (11.6-14.6); WHITE BLOOD COUNT 15.1 x1000/uL (4.5-11.0)
[2024-07-25 17:19] LABS: CHLORIDE 100 mEq/L (98-107); POTASSIUM 5.1 mEq/L (3.5-5.1); SODIUM 135 mEq/L (136-145)
[2024-07-25 17:20] LABS: CALCIUM 9.7 mg/dL (8.7-10.4); CARBON DIOXIDE 21 mEq/L (21-32)
[2024-07-25 17:25] LABS: CREATININE 3.6 mg/dL (0.6-1.0); GLUCOSE 197 mg/dL (70-105); UREA NITROGEN BLOOD 35 mg/dL (9-23)
[2024-07-25 17:29] LABS: TROPONIN I HIGH SENSITIVITY 3091 ng/L (3.0-34)
[2024-07-25 18:14] LABS: BG BASE EXCESS -2.8 mmol/L (-2.0-3.0); BG CARBOXYHEMOGLOBIN 1.5 % (0.5-1.5); BG FRACTION INSPIRED OXYGEN 21; BG HCO3 ACT 22.9 mmol/L (21.0-28.0); BG METHEMOGLOBIN 0.1 % (0.5-1.5); BG OXYGEN SATURATION 92.9 % (94.0-98.0); BG OXYHEMOGLOBIN 91.4 % (94.0-98.0); BG PCO2 43.5 mmHg (32.0-45.0); BG PH 7.339 (7.350-7.450); BG PO2 69.4 mmHg (83.0-108.0); BG SAMPLE SITE RIGHT BRACHIAL; BG TOTAL HEMOGLOBIN 8.8 g/dL (12.0-16.0); BG VENT MODE ROOM AIR
[2024-07-25] MEDS: VANCOMYCIN 750MG/150ML (BAXTER) IV NR (19:40)
[2024-07-25] MEDS: AMIODARONE HCL 900 MG in DEXT 5% WATER 482 ML IV PRN (20:30)
[2024-07-25 21:19] LABS: PHOSPHORUS 4.4 mg/dL (2.5-4.9)
[2024-07-25 23:20] LABS: HEMATOCRIT 25.5 % (36.0-48.0); HEMOGLOBIN 7.4 g/dL (12.0-16.0); MEAN CORPUSCULAR HEMOGLOBIN 27.4 pg (28.0-32.0); MEAN CORPUSCULAR VOLUME 94.4 fL (81.0-99.0); PLATELET 193 x1000/uL (130-400); RED CELL DISTRIBUTION WIDTH 22.1 % (11.6-14.6); WHITE BLOOD COUNT 15.9 x1000/uL (4.5-11.0)
[2024-07-25 23:30] LABS: INR 1.3; PARTIAL THROMBOPLASTIN TIME 25.7 sec (23.4-31.0); PROTHROMBIN TIME 14.6 sec (9.6-11.0)
[2024-07-25 23:33] LABS: CREATINE KINASE MB FRACTION 12.5 ng/mL (0.5-3.6)
[2024-07-26] VITALS (97 sets, daily range): BP systolic 72–128; BP diastolic 29–80; PULSE 61–72; RESP 7–24; TEMP 36.55848–37.11408; O2SAT 94–100
[2024-07-26 05:52] LABS: POTASSIUM 5.5 mEq/L (3.5-5.1)
[2024-07-26 05:52] LABS: HEMATOCRIT. 25.6 % (36.0-48.0); HEMOGLOBIN. 7.4 g/dL (12.0-16.0); MEAN CORPUSCULAR HEMOGLOBIN 27.6 pg (28.0-32.0); MEAN PLATELET VOLUME 10.8 fl (7.4-10.4); PLATELET 190 x1000/uL (130-400); RED BLOOD CELL COUNT 2.69 mill/uL (4.2-5.4); RED CELL DISTRIBUTION WIDTH 22.2 % (11.6-14.6); WHITE BLOOD COUNT 15.6 x1000/uL (4.5-11.0)
[2024-07-26 05:53] LABS: CALCIUM 10.3 mg/dL (8.7-10.4); CREATINE KINASE MB FRACTION 12.5 ng/mL (0.5-3.6)
[2024-07-26 05:58] LABS: CREATININE 4.2 mg/dL (0.6-1.0)
[2024-07-26 06:15] LABS: DIFFERENTIAL COMMENT 1
[2024-07-26] MEDS: LIDOCAINE HCL 1% 10 MG/ML 10ML VIAL ONE (07:11)
[2024-07-26] MEDS: PHENYLEPHRINE 100 MG in DEXT 5% WATER 240 ML IV PRN (08:01)
[2024-07-26 08:40] LABS: PHOSPHORUS 6.9 mg/dL (2.5-4.9)
[2024-07-26 09:07] LABS: LACTIC ACID 2.7 mmol/L (0.4-2.0)
[2024-07-26 09:15] LABS: NUCLEATED RED BLOOD CELLS 15 /100 WBC
[2024-07-26 09:16] LABS: ANISOCYTOSIS 3+; PLATELET ESTIMATE NORMAL
[2024-07-26 09:17] LABS: TARGET CELLS 1+
[2024-07-26] MEDS: SODIUM ZIRCONIUM CYCLOSILICATE 10GM/PACKET PO NR (09:19)
[2024-07-26] MEDS ORDERED: HEPARIN 5000 UNITS/ML VIAL IV PRN ×2 (10:45)
[2024-07-26] MEDS ORDERED: HEPARIN 5000 UNITS/ML VIAL IV SCH (10:45)
[2024-07-26] MEDS ORDERED: HEPARIN 25,000 UNITS PREMIX 250 ML IV PRN (10:45)
[2024-07-26 11:14] LABS: PHOSPHORUS 7.4 mg/dL (2.5-4.9)
[2024-07-26] MEDS ORDERED: MAGNESIUM 4 G PREMIX 100 ML IV NR (12:00)
[2024-07-26] MEDS ORDERED: NALOXONE HCL 0.4MG/ML VIAL IV PRN (14:00)
[2024-07-26] MEDS ORDERED: HEPARIN 60 UNITS/KG BOLUS IV NR (15:00)
[2024-07-26] MEDS ORDERED: HEPARIN 25,000 UNITS PREMIX 250 ML IV SCH (15:00)
[2024-07-26] MEDS ORDERED: BIVALIRUDIN IV SCH (18:00)
[2024-07-26] MEDS: AMIODARONE 200MG TABLET PO SCH (20:35)
[2024-07-26] MEDS: ATORVASTATIN CALCIUM 40MG TABLET PO SCH (20:35)
[2024-07-26] MEDS: EPOETIN ALFA-EPBX 4,000 UNIT/ML VIAL SUBCUT SCH (20:35)
[2024-07-26] MEDS: ZOLPIDEM TARTRATE 5MG TABLET PO PRN (21:31)
[2024-07-26] MEDS: BIVALIRUDIN IV SCH (21:32)
[2024-07-26] MEDS ORDERED: HEPARIN BOLUS PRN aPTT 30-44 IV (22:00)
[2024-07-26] MEDS ORDERED: HEPARIN BOLUS PRN aPTT <30 IV (22:00)
[2024-07-27] VITALS (108 sets, daily range): BP systolic 43–170; BP diastolic 15–97; PULSE 71–155; RESP 12–61; TEMP 36.61404–38.39196; O2SAT 88–100
[2024-07-27 02:04] LABS: CREATINE KINASE MB FRACTION 9.9 ng/mL (0.5-3.6); INR 3.4
[2024-07-27 02:49] LABS: PARTIAL THROMBOPLASTIN TIME 78.5 sec (23.4-31.0)
[2024-07-27 08:13] LABS: CHLORIDE 97 mEq/L (98-107); POTASSIUM 6.1 mEq/L (3.5-5.1); SODIUM 133 mEq/L (136-145)
[2024-07-27 08:15] LABS: HEMATOCRIT. 27.1 % (36.0-48.0); HEMOGLOBIN. 8.4 g/dL (12.0-16.0); MEAN CORPUSCULAR HEMOGLOBIN 28.2 pg (28.0-32.0); MEAN CORPUSCULAR HGB CONC 30.9 g/dL (31.0-37.0); MEAN CORPUSCULAR VOLUME 91.1 fL (81.0-99.0); MEAN PLATELET VOLUME 10.6 fl (7.4-10.4); PLATELET 152 x1000/uL (130-400); RED BLOOD CELL COUNT 2.97 mill/uL (4.2-5.4); WHITE BLOOD COUNT 17.7 x1000/uL (4.5-11.0)
[2024-07-27 08:16] LABS: CALCIUM 9.8 mg/dL (8.7-10.4); CARBON DIOXIDE 27 mEq/L (21-32)
[2024-07-27 08:21] LABS: GLUCOSE 97 mg/dL (70-105)
[2024-07-27 08:22] LABS: UREA NITROGEN BLOOD 66 mg/dL (9-23)
[2024-07-27 08:23] LABS: ALANINE AMINOTRANSFERASE 433 IU/L (10-49); ASPARTATE AMINOTRANSFERASE 704 IU/L (<34); BILIRUBIN DIRECT 1.5 mg/dL (<=3.0)
[2024-07-27 08:24] LABS: BILIRUBIN TOTAL 2.1 mg/dL (0.1-1.0); PHOSPHORUS 7.9 mg/dL (2.5-4.9); PROTEIN TOTAL 5.4 g/dL (6.0-8.3)
[2024-07-27 08:26] LABS: CREATININE 5.1 mg/dL (0.6-1.0)
[2024-07-27 08:32] LABS: TROPONIN I HIGH SENSITIVITY 5319 ng/L (3.0-34)
[2024-07-27 09:29] LABS: DIFFERENTIAL COMMENT 1
[2024-07-27] MEDS: METHYLPREDNISOLONE SOD SUCC 125MG/2ML (ACT-O-VIAL) IV NR (10:34)
[2024-07-27] MEDS ORDERED: NOREPINEPHRINE 8MG/250ML PMX 250 ML IV ONE ×3 (11:00→11:15)
[2024-07-27] MEDS ORDERED: PHENYLEPHRINE 50MG/250ML PMX 250 ML IV PRN (11:00)
[2024-07-27] MEDS ORDERED: PANTOPRAZOLE SODIUM 40 MG/VIAL IV ONE (11:00)
[2024-07-27] MEDS: NOREPINEPHRINE 32 MG in DEXT 5% WATER 218 ML IV PRN (11:21)
[2024-07-27] MEDS ORDERED: PROPOFOL 10MG/ML 100ML 100 ML IV SCH (11:24)
[2024-07-27] MEDS: METHYLPREDNISOLONE SOD SUCC 40MG/ML (ACT-O-VIAL) IV SCH (11:48)
[2024-07-27] MEDS: PANTOPRAZOLE SODIUM 40 MG/VIAL IV SCH (11:48)
[2024-07-27 12:28] LABS: HEMATOCRIT 31.5 % (36.0-48.0); MEAN CORPUSCULAR HEMOGLOBIN 27.6 pg (28.0-32.0); MEAN CORPUSCULAR HGB CONC 30.6 g/dL (31.0-37.0); MEAN CORPUSCULAR VOLUME 90.3 fL (81.0-99.0); PLATELET 190 x1000/uL (130-400); RED BLOOD CELL COUNT 3.49 mill/uL (4.2-5.4); RED CELL DISTRIBUTION WIDTH 19.3 % (11.6-14.6)
[2024-07-27 12:43] LABS: HEMOGLOBIN 9.6 g/dL (12.0-16.0)
[2024-07-27 12:45] LABS: TROPONIN I HIGH SENSITIVITY 6950 ng/L (3.0-34)
[2024-07-27] MEDS: PROPOFOL 10MG/ML 100ML 100 ML IV PRN (12:45)
[2024-07-27] MEDS: OCTREOTIDE 1,000 MCG in SODIUM CHLORIDE 0.9% 98 ML IV PRN (15:12)
[2024-07-27 16:29] LABS: NUCLEATED RED BLOOD CELLS 8 /100 WBC
[2024-07-27 16:30] LABS: ANISOCYTOSIS 2+; PLATELET ESTIMATE NORMAL
[2024-07-27 16:31] LABS: OVALOCYTES 1+
[2024-07-27 17:18] LABS: BG BASE EXCESS 0.5 mmol/L (-2.0-3.0); BG CARBOXYHEMOGLOBIN 1.1 % (0.5-1.5); BG DEOXYHEMOGLOBIN 0.2 % (0.0-5.0); BG FRACTION INSPIRED OXYGEN 100; BG HCO3 ACT 27.1 mmol/L (21.0-28.0); BG METHEMOGLOBIN 0.3 % (0.5-1.5); BG OXYGEN SATURATION 99.8 % (94.0-98.0); BG OXYHEMOGLOBIN 98.4 % (94.0-98.0); BG PCO2 53.1 mmHg (32.0-45.0); BG PH 7.325 (7.350-7.450); BG PO2 217.3 mmHg (83.0-108.0); BG SAMPLE SITE RIGHT BRACHIAL; BG TOTAL HEMOGLOBIN 10.1 g/dL (12.0-16.0); BG VENT MODE VENT - AC
[2024-07-27] MEDS: BLOOD SUGAR DIAGNOSTIC STRIP TEST SCH (18:00)
[2024-07-27] MEDS: INSULIN LISPRO 100 UNITS/ML SUBCUT SCH (18:00)
[2024-07-27] MEDS: DEXTROSE 50% WATER 50ML SYRINGE IV PRN (18:16)
[2024-07-27 19:37] LABS: POTASSIUM 6.6 mEq/L (3.5-5.1)
[2024-07-27] MEDS ORDERED: CALCIUM CHLORIDE 1GM/10ML SYR IV ONE (20:00)
[2024-07-27] MEDS: INSULIN REGULAR (HUMULIN R) 1000UNITS/10ML VIAL IV NR (20:00)
[2024-07-27] MEDS ORDERED: ALBUTEROL (0.083%) 2.5MG/3ML NEB HHN NR (20:00)
[2024-07-27] MEDS ORDERED: SODIUM POLYSTYRENE SULFONATE 15 G/60 ML BOT NG ONE (20:00)
[2024-07-27] MEDS: SODIUM BICARBONATE 8.4% 50MEQ/50ML SYR IV NR (20:56)
[2024-07-27] MEDS: CALCIUM GLUCONATE 1GM PREMIX 50ML IV NR (20:56)
[2024-07-27] MEDS: SODIUM ZIRCONIUM CYCLOSILICATE 10GM/PACKET PO NR (20:57)
[2024-07-27] MEDS: DEXTROSE 50% WATER 50ML SYRINGE IV NR (21:28)
[2024-07-27 23:53] LABS: POTASSIUM 6.1 mEq/L (3.5-5.1)
[2024-07-28] VITALS (102 sets, daily range): BP systolic 67–147; BP diastolic 16–98; PULSE 66–136; RESP 13–25; TEMP 36.3918–37.16964; O2SAT 97–100
[2024-07-28 00:34] LABS: TROPONIN I HIGH SENSITIVITY 6953 ng/L (3.0-34)
[2024-07-28] MEDS: SODIUM POLYSTYRENE SULFONATE 15 G/60 ML BOT NG SCH (03:08)
[2024-07-28 04:01] LABS: HEMATOCRIT 26.8 % (36.0-48.0); HEMOGLOBIN 8.1 g/dL (12.0-16.0); MEAN CORPUSCULAR HEMOGLOBIN 28.2 pg (28.0-32.0); MEAN CORPUSCULAR HGB CONC 30.1 g/dL (31.0-37.0); MEAN CORPUSCULAR VOLUME 93.7 fL (81.0-99.0); PLATELET 173 x1000/uL (130-400); RED BLOOD CELL COUNT 2.86 mill/uL (4.2-5.4); RED CELL DISTRIBUTION WIDTH 21.1 % (11.6-14.6); WHITE BLOOD COUNT 19.4 x1000/uL (4.5-11.0)
[2024-07-28 04:52] LABS: CHLORIDE 95 mEq/L (98-107); POTASSIUM 6.1 mEq/L (3.5-5.1); SODIUM 132 mEq/L (136-145)
[2024-07-28 04:53] LABS: CALCIUM 9.4 mg/dL (8.7-10.4); CARBON DIOXIDE 24 mEq/L (21-32)
[2024-07-28 04:58] LABS: AMMONIA 46 uMol/L (<32); CREATININE 4.8 mg/dL (0.6-1.0); GLUCOSE 223 mg/dL (70-105); TRIGLYCERIDE 163 mg/dL (0-150); UREA NITROGEN BLOOD 59 mg/dL (9-23)
[2024-07-28 05:08] LABS: TROPONIN I HIGH SENSITIVITY 8421 ng/L (3.0-34)
[2024-07-28 05:45] LABS: HEMATOCRIT. 29.9 % (36.0-48.0); HEMOGLOBIN. 9.2 g/dL (12.0-16.0); MEAN CORPUSCULAR HEMOGLOBIN 27.8 pg (28.0-32.0); MEAN CORPUSCULAR HGB CONC 30.9 g/dL (31.0-37.0); MEAN CORPUSCULAR VOLUME 90.1 fL (81.0-99.0); MEAN PLATELET VOLUME 10.9 fl (7.4-10.4); PLATELET 200 x1000/uL (130-400); RED BLOOD CELL COUNT 3.32 mill/uL (4.2-5.4); RED CELL DISTRIBUTION WIDTH 20.1 % (11.6-14.6)
[2024-07-28 05:46] LABS: DIFFERENTIAL COMMENT 1
[2024-07-28 06:21] LABS: NUCLEATED RED BLOOD CELLS 4 /100 WBC; PLATELET ESTIMATE NORMAL
[2024-07-28 06:22] LABS: ANISOCYTOSIS 3+
[2024-07-28 09:47] LABS: LACTIC ACID 2.1 mmol/L (0.4-2.0)
[2024-07-28 09:50] LABS: ALANINE AMINOTRANSFERASE 531 IU/L (10-49); ALBUMIN 3.1 g/dL (3.2-4.8); ASPARTATE AMINOTRANSFERASE 728 IU/L (<34); BILIRUBIN DIRECT 2.3 mg/dL (<=3.0); BILIRUBIN TOTAL 3.3 mg/dL (0.1-1.0)
[2024-07-28] MEDS: MEROPENEM 500MG/50ML 50 ML IV SCH (12:37)
[2024-07-28 13:19] LABS: BG BASE EXCESS 0.6 mmol/L (-2.0-3.0); BG CARBOXYHEMOGLOBIN 0.9 % (0.5-1.5); BG DEOXYHEMOGLOBIN 2.5 % (0.0-5.0); BG FRACTION INSPIRED OXYGEN 40; BG HCO3 ACT 26.2 mmol/L (21.0-28.0); BG METHEMOGLOBIN 0.3 % (0.5-1.5); BG OXYGEN SATURATION 97.5 % (94.0-98.0); BG OXYHEMOGLOBIN 96.3 % (94.0-98.0); BG PCO2 46.3 mmHg (32.0-45.0); BG PH 7.371 (7.350-7.450); BG PO2 94.5 mmHg (83.0-108.0); BG SAMPLE SITE RIGHT RADIAL; BG TOTAL HEMOGLOBIN 10.9 g/dL (12.0-16.0); BG TOTAL RESPIRATORY RATE 24 b/min; BG VENT MODE VENT - AC
[2024-07-28] MEDS: APIXABAN 2.5 MG TABLET PO SCH (13:38)
[2024-07-28] MEDS ORDERED: VANCOMYCIN 500MG/100ML IV NR (17:00)
[2024-07-28 22:07] LABS: POTASSIUM 5.2 mEq/L (3.5-5.1)
[2024-07-28 22:14] LABS: CREATINE KINASE MB FRACTION 14.4 ng/mL (0.5-3.6)
[2024-07-29] VITALS (109 sets, daily range): BP systolic 106–144; BP diastolic 20–72; PULSE 73–80; RESP 13–23; TEMP 36.3918–37.55856; O2SAT 97–100
[2024-07-29] MEDS: PROPOFOL 10MG/ML 100ML 100 ML IV PRN (01:44)
[2024-07-29 04:43] LABS: HEMATOCRIT. 31.8 % (36.0-48.0); HEMOGLOBIN. 9.9 g/dL (12.0-16.0); MEAN CORPUSCULAR HEMOGLOBIN 28.1 pg (28.0-32.0); MEAN CORPUSCULAR HGB CONC 31.3 g/dL (31.0-37.0); MEAN CORPUSCULAR VOLUME 89.8 fL (81.0-99.0); MEAN PLATELET VOLUME 10.7 fl (7.4-10.4); PLATELET 176 x1000/uL (130-400); RED BLOOD CELL COUNT 3.54 mill/uL (4.2-5.4); RED CELL DISTRIBUTION WIDTH 20.1 % (11.6-14.6); WHITE BLOOD COUNT 31.2 x1000/uL (4.5-11.0)
[2024-07-29 04:49] LABS: CHLORIDE 95 mEq/L (98-107); POTASSIUM 5.3 mEq/L (3.5-5.1); SODIUM 130 mEq/L (136-145)
[2024-07-29 04:50] LABS: CALCIUM 9.1 mg/dL (8.7-10.4); CARBON DIOXIDE 27 mEq/L (21-32)
[2024-07-29 04:51] LABS: DIFFERENTIAL COMMENT 1
[2024-07-29 04:55] LABS: CREATININE 4.1 mg/dL (0.6-1.0); GLUCOSE 200 mg/dL (70-105)
[2024-07-29 04:56] LABS: UREA NITROGEN BLOOD 55 mg/dL (9-23)
[2024-07-29 04:57] LABS: ALANINE AMINOTRANSFERASE 341 IU/L (10-49); ALBUMIN 2.6 g/dL (3.2-4.8); ASPARTATE AMINOTRANSFERASE 405 IU/L (<34); BILIRUBIN DIRECT 2.4 mg/dL (<=3.0); LACTIC ACID 2.5 mmol/L (0.4-2.0)
[2024-07-29 04:58] LABS: AMMONIA 37 uMol/L (<32); BILIRUBIN TOTAL 3.1 mg/dL (0.1-1.0); CREATINE KINASE MB FRACTION 12.2 ng/mL (0.5-3.6); PHOSPHORUS 7.6 mg/dL (2.5-4.9); PROTEIN TOTAL 4.7 g/dL (6.0-8.3)
[2024-07-29 05:17] LABS: ANISOCYTOSIS 3+; NUCLEATED RED BLOOD CELLS 1 /100 WBC; PLATELET ESTIMATE NORMAL; TARGET CELLS FEW
[2024-07-29] MEDS: SODIUM ZIRCONIUM CYCLOSILICATE 10GM/PACKET PO NR (09:48)
[2024-07-29 15:40] LABS: CREATINE KINASE MB FRACTION 13.5 ng/mL (0.5-3.6)
[2024-07-29 23:56] LABS: TROPONIN I HIGH SENSITIVITY 7669 ng/L (3.0-34)
[2024-07-30] VITALS (118 sets, daily range): BP systolic 51–123; BP diastolic 33–84; PULSE 71–134; RESP 15–25; TEMP 36.05844–37.00296; O2SAT 92–100
[2024-07-30] MEDS: PROPOFOL 10MG/ML 100ML 100 ML IV PRN ×2 (02:12→22:00)
[2024-07-30 05:53] LABS: HEMATOCRIT. 31.1 % (36.0-48.0); HEMOGLOBIN. 9.7 g/dL (12.0-16.0); MEAN CORPUSCULAR HEMOGLOBIN 28.4 pg (28.0-32.0); MEAN CORPUSCULAR HGB CONC 31.2 g/dL (31.0-37.0); MEAN CORPUSCULAR VOLUME 91.1 fL (81.0-99.0); MEAN PLATELET VOLUME 10.9 fl (7.4-10.4); PLATELET 174 x1000/uL (130-400); RED BLOOD CELL COUNT 3.41 mill/uL (4.2-5.4); RED CELL DISTRIBUTION WIDTH 20.8 % (11.6-14.6); WHITE BLOOD COUNT 29.2 x1000/uL (4.5-11.0)
[2024-07-30 05:59] LABS: CARBON DIOXIDE 24 mEq/L (21-32); CHLORIDE 92 mEq/L (98-107); POTASSIUM 5.6 mEq/L (3.5-5.1); SODIUM 127 mEq/L (136-145)
[2024-07-30 06:00] LABS: CALCIUM 8.2 mg/dL (8.7-10.4)
[2024-07-30 06:04] LABS: CREATININE 4.6 mg/dL (0.6-1.0); GLUCOSE 230 mg/dL (70-105)
[2024-07-30 06:05] LABS: TRIGLYCERIDE 279 mg/dL (0-150); UREA NITROGEN BLOOD 72 mg/dL (9-23)
[2024-07-30 06:06] LABS: ALANINE AMINOTRANSFERASE 255 IU/L (10-49); ALBUMIN 2.4 g/dL (3.2-4.8); ASPARTATE AMINOTRANSFERASE 313 IU/L (<34)
[2024-07-30 06:07] LABS: BILIRUBIN TOTAL 2.6 mg/dL (0.1-1.0); PROTEIN TOTAL 4.4 g/dL (6.0-8.3)
[2024-07-30 06:08] LABS: DIFFERENTIAL COMMENT 1
[2024-07-30 06:26] LABS: TROPONIN I HIGH SENSITIVITY 7808 ng/L (3.0-34)
[2024-07-30 06:42] LABS: PHOSPHORUS 8.3 mg/dL (2.5-4.9)
[2024-07-30 08:58] LABS: AMMONIA 54 uMol/L (<32)
[2024-07-30 11:31] LABS: NUCLEATED RED BLOOD CELLS 1 /100 WBC
[2024-07-30 11:33] LABS: ANISOCYTOSIS 2+; PLATELET ESTIMATE NORMAL
[2024-07-30 12:19] LABS: BG BASE EXCESS -4.3 mmol/L (-2.0-3.0); BG CARBOXYHEMOGLOBIN 1.1 % (0.5-1.5); BG DEOXYHEMOGLOBIN 2.6 % (0.0-5.0); BG FRACTION INSPIRED OXYGEN 40; BG HCO3 ACT 20.8 mmol/L (21.0-28.0); BG METHEMOGLOBIN 0.2 % (0.5-1.5); BG OXYGEN SATURATION 97.4 % (94.0-98.0); BG OXYHEMOGLOBIN 96.1 % (94.0-98.0); BG PCO2 38.1 mmHg (32.0-45.0); BG PH 7.354 (7.350-7.450); BG PO2 96.9 mmHg (83.0-108.0); BG SAMPLE SITE RIGHT BRACHIAL; BG VENT MODE VENT - AC
[2024-07-30 15:10] LABS: TROPONIN I HIGH SENSITIVITY 9080 ng/L (3.0-34)
[2024-07-31] VITALS (107 sets, daily range): BP systolic 89–135; BP diastolic 34–87; PULSE 73–88; RESP 11–21; TEMP 36.89184–37.7808; O2SAT 97–100
[2024-07-31 05:52] LABS: HEMATOCRIT. 32.1 % (36.0-48.0); MEAN CORPUSCULAR HEMOGLOBIN 28.1 pg (28.0-32.0); MEAN CORPUSCULAR HGB CONC 31.1 g/dL (31.0-37.0); MEAN CORPUSCULAR VOLUME 90.3 fL (81.0-99.0); PLATELET 152 x1000/uL (130-400); RED BLOOD CELL COUNT 3.55 mill/uL (4.2-5.4); WHITE BLOOD COUNT 30.4 x1000/uL (4.5-11.0)
[2024-07-31 06:08] LABS: CHLORIDE 89 mEq/L (98-107); CREATINE KINASE MB FRACTION 15.3 ng/mL (0.5-3.6); SODIUM 123 mEq/L (136-145)
[2024-07-31 06:09] LABS: CALCIUM 7.7 mg/dL (8.7-10.4); CARBON DIOXIDE 21 mEq/L (21-32)
[2024-07-31 06:12] LABS: TRIGLYCERIDE 347 mg/dL (0-150)
[2024-07-31 06:14] LABS: CREATININE 4.9 mg/dL (0.6-1.0); GLUCOSE 184 mg/dL (70-105); UREA NITROGEN BLOOD 72 mg/dL (9-23)
[2024-07-31 06:16] LABS: ALANINE AMINOTRANSFERASE 248 IU/L (10-49); ALBUMIN 2.4 g/dL (3.2-4.8); ASPARTATE AMINOTRANSFERASE 421 IU/L (<34); BILIRUBIN DIRECT 1.9 mg/dL (<=3.0); BILIRUBIN TOTAL 2.6 mg/dL (0.1-1.0)
[2024-07-31 06:17] LABS: PROTEIN TOTAL 4.6 g/dL (6.0-8.3)
[2024-07-31 06:37] LABS: INR 1.3; PARTIAL THROMBOPLASTIN TIME 37.5 sec (23.4-31.0); PROTHROMBIN TIME 14.6 sec (9.6-11.0)
[2024-07-31 06:40] LABS: DIFFERENTIAL COMMENT 1
[2024-07-31 08:13] LABS: POTASSIUM 6.4 mEq/L (3.5-5.1)
[2024-07-31 08:39] LABS: PHOSPHORUS 8.3 mg/dL (2.5-4.9)
[2024-07-31 09:31] LABS: BG BASE EXCESS -2.4 mmol/L (-2.0-3.0); BG CARBOXYHEMOGLOBIN 0.9 % (0.5-1.5); BG DEOXYHEMOGLOBIN 1.2 % (0.0-5.0); BG FRACTION INSPIRED OXYGEN 40; BG HCO3 ACT 22.7 mmol/L (21.0-28.0); BG METHEMOGLOBIN 0.1 % (0.5-1.5); BG OXYGEN SATURATION 98.8 % (94.0-98.0); BG OXYHEMOGLOBIN 97.8 % (94.0-98.0); BG PCO2 40.2 mmHg (32.0-45.0); BG PO2 108.7 mmHg (83.0-108.0); BG SAMPLE SITE RIGHT RADIAL; BG TOTAL HEMOGLOBIN 10.9 g/dL (12.0-16.0); BG VENT MODE VENT - AC
[2024-07-31 09:53] LABS: POTASSIUM 5.7 mEq/L (3.5-5.1)
[2024-07-31] MEDS: SODIUM POLYSTYRENE SULFONATE 15 G/60 ML BOT PO SCH (10:45)
[2024-07-31 14:52] LABS: ANISOCYTOSIS 2+; NUCLEATED RED BLOOD CELLS 4 /100 WBC; PLATELET ESTIMATE NORMAL; TEAR DROP CELLS 1+
[2024-07-31 14:58] LABS: SMUDGE CELLS 1+
[2024-07-31] MEDS: METHYLPREDNISOLONE SOD SUCC 40MG/ML (ACT-O-VIAL) IV SCH (17:15)
[2024-07-31] MEDS: CEFEPIME 1GM/50ML 50 ML IV SCH (17:15)
[2024-07-31] MEDS: METRONIDAZOLE 500MG TABLET PO SCH (20:05)
[2024-07-31 23:09] LABS: POTASSIUM 5.8 mEq/L (3.5-5.1)
[2024-07-31 23:18] LABS: CREATINE KINASE MB FRACTION 14.8 ng/mL (0.5-3.6)
[2024-07-31] MEDS: SODIUM POLYSTYRENE SULFONATE 15 G/60 ML BOT NG NR (23:50)
[2024-08-01] VITALS (55 sets, daily range): BP systolic 33–124; BP diastolic 15–54; PULSE 0–87; RESP 0–22; TEMP 36.9474–37.2252; O2SAT 85–99
[2024-08-01] MEDS ORDERED: PROPOFOL 10MG/ML 100ML 100 ML IV PRN (04:00)
[2024-08-01] MEDS ORDERED: OCTREOTIDE ACETATE 50 MCG/ML 1ML IV SCH (04:45)
[2024-08-01 05:30] LABS: CHLORIDE 87 mEq/L (98-107); POTASSIUM 5.9 mEq/L (3.5-5.1)
[2024-08-01 05:31] LABS: CALCIUM 6.9 mg/dL (8.7-10.4); CARBON DIOXIDE 19 mEq/L (21-32)
[2024-08-01 05:36] LABS: GLUCOSE 187 mg/dL (70-105); UREA NITROGEN BLOOD 93 mg/dL (9-23)
[2024-08-01 05:38] LABS: ALANINE AMINOTRANSFERASE 333 IU/L (10-49); ALBUMIN 2.1 g/dL (3.2-4.8); ASPARTATE AMINOTRANSFERASE 845 IU/L (<34); BILIRUBIN DIRECT 2.3 mg/dL (<=3.0); CREATINE KINASE 981 IU/L (34-145)
[2024-08-01 05:39] LABS: BILIRUBIN TOTAL 2.9 mg/dL (0.1-1.0); PROTEIN TOTAL 4.1 g/dL (6.0-8.3)
[2024-08-01 05:44] LABS: CREATININE 5.4 mg/dL (0.6-1.0); PHOSPHORUS 8.3 mg/dL (2.5-4.9); SODIUM 120 mEq/L (136-145); TROPONIN I HIGH SENSITIVITY 21903 ng/L (3.0-34)
[2024-08-01] MEDS ORDERED: HEPARIN 25,000 UNITS PREMIX 250 ML IV SCH (06:30)
[2024-08-01 06:34] LABS: HEMATOCRIT. 29.7 % (36.0-48.0); HEMOGLOBIN. 9.3 g/dL (12.0-16.0); MEAN CORPUSCULAR HEMOGLOBIN 28.7 pg (28.0-32.0); MEAN CORPUSCULAR HGB CONC 31.2 g/dL (31.0-37.0); MEAN CORPUSCULAR VOLUME 91.9 fL (81.0-99.0); MEAN PLATELET VOLUME 10.9 fl (7.4-10.4); PLATELET 141 x1000/uL (130-400); RED BLOOD CELL COUNT 3.23 mill/uL (4.2-5.4); RED CELL DISTRIBUTION WIDTH 20.6 % (11.6-14.6); WHITE BLOOD COUNT 30.1 x1000/uL (4.5-11.0)
[2024-08-01 07:26] LABS: DIFFERENTIAL COMMENT 1
[2024-08-01] MEDS ORDERED: SODIUM POLYSTYRENE SULFONATE 15 G/60 ML BOT PO ONE (07:45)
[2024-08-01] MEDS: ARGATROBAN IV SCH (08:00)
[2024-08-01] MEDS ORDERED: SODIUM ZIRCONIUM CYCLOSILICATE 10GM/PACKET PO NR (08:00)
[2024-08-01] MEDS: SODIUM CHLORIDE 0.9% IV SCH (08:00)
[2024-08-01] MEDS: SODIUM BICARBONATE 8.4% 50MEQ/50ML SYR IV NR (08:16)
[2024-08-01] MEDS: DEXTROSE 50% WATER 50ML SYRINGE IV NR (08:16)
[2024-08-01] MEDS: INSULIN REGULAR (HUMULIN R) 1000UNITS/10ML VIAL IV NR (08:20)
[2024-08-01] MEDS ORDERED: MORPHINE SULFATE 250 MG in DEXT 5% WATER 225 ML IV PRN ×3 (09:15→10:00)
[2024-08-01 09:38] LABS: ANISOCYTOSIS 2+; NUCLEATED RED BLOOD CELLS 6 /100 WBC; PLATELET ESTIMATE NORMAL
[2024-08-01] MEDS ORDERED: LORAZEPAM 2MG/ML INJ IV PRN (09:45)
[2024-08-01] MEDS ORDERED: ONDANSETRON HCL 4MG/2ML INJ IV PRN (09:45)
[2024-08-01] MEDS ORDERED: MORPHINE SULFATE 250 MG in DEXT 5% WATER 240 ML IV PRN (10:30)
== END 2024-08-01 15:10 | DRG 720 ==
LOC: ER 07:15 → 5EST 09:12 → EDBEDREQTM 09:16 → EDBEDREQ 09:16 → ER 07-22 → MICUSO 07-25 15:40
PROVIDERS: ADMIT Internal Medicine; ATTEND Internal Medicine
PROC: 5A09357 Assistance with Respiratory Ventilation, Less than 24 Consecutive Hours, Continuous Positive Airway Pressure (ICD-10-PCS; 2024-07-21)
PROC: 5A1D70Z Performance of Urinary Filtration, Intermittent, Less than 6 Hours Per Day (ICD-10-PCS; 2024-07-21)
PROC: 5A1D70Z Performance of Urinary Filtration, Intermittent, Less than 6 Hours Per Day (ICD-10-PCS; 2024-07-22)
PROC: 5A09357 Assistance with Respiratory Ventilation, Less than 24 Consecutive Hours, Continuous Positive Airway Pressure (ICD-10-PCS; 2024-07-24)
PROC: 5A1D70Z Performance of Urinary Filtration, Intermittent, Less than 6 Hours Per Day (ICD-10-PCS; 2024-07-24)
PROC: 02HV33Z Insertion of Infusion Device into Superior Vena Cava, Percutaneous Approach (ICD-10-PCS; principal; 2024-07-25)
PROC: B548ZZA Ultrasonography of Superior Vena Cava, Guidance (ICD-10-PCS; 2024-07-25)
PROC: 5A1D70Z Performance of Urinary Filtration, Intermittent, Less than 6 Hours Per Day (ICD-10-PCS; 2024-07-25)
PROC: 05HN33Z Insertion of Infusion Device into Left Internal Jugular Vein, Percutaneous Approach (ICD-10-PCS; 2024-07-26)
PROC: B544ZZA Ultrasonography of Left Jugular Veins, Guidance (ICD-10-PCS; 2024-07-26)
PROC: 30233N1 Transfusion of Nonautologous Red Blood Cells into Peripheral Vein, Percutaneous Approach (ICD-10-PCS; 2024-07-26)
PROC: 5A1955Z Respiratory Ventilation, Greater than 96 Consecutive Hours (ICD-10-PCS; 2024-07-27)
PROC: 0BH17EZ Insertion of Endotracheal Airway into Trachea, Via Natural or Artificial Opening (ICD-10-PCS; 2024-07-27)
PROC: 5A1D70Z Performance of Urinary Filtration, Intermittent, Less than 6 Hours Per Day (ICD-10-PCS; 2024-07-27)
PROC: 5A1D70Z Performance of Urinary Filtration, Intermittent, Less than 6 Hours Per Day (ICD-10-PCS; 2024-07-28)
PROC: 5A1D70Z Performance of Urinary Filtration, Intermittent, Less than 6 Hours Per Day (ICD-10-PCS; 2024-07-30)
DX: A41.9 Sepsis, unspecified organism (principal); J96.01 Acute respiratory failure with hypoxia; I21.4 Non-ST elevation (NSTEMI) myocardial infarction; G93.41 Metabolic encephalopathy; R57.1 Hypovolemic shock; R65.21 Severe sepsis with septic shock; I50.23 Acute on chronic systolic (congestive) heart failure; K92.2 Gastrointestinal hemorrhage, unspecified; J18.9 Pneumonia, unspecified organism; N18.6 End stage renal disease; I47.20 Ventricular tachycardia, unspecified; D63.1 Anemia in chronic kidney disease; E83.39 Other disorders of phosphorus metabolism; E87.1 Hypo-osmolality and hyponatremia; E11.22 Type 2 diabetes mellitus with diabetic chronic kidney disease; I13.2 Hypertensive heart and chronic kidney disease with heart failure and with stage 5 chronic kidney disease, or end stage renal disease; E87.5 Hyperkalemia; Z66 Do not resuscitate; B19.20 Unspecified viral hepatitis C without hepatic coma; D25.9 Leiomyoma of uterus, unspecified; N39.0 Urinary tract infection, site not specified; I48.91 Unspecified atrial fibrillation; J96.02 Acute respiratory failure with hypercapnia; I08.1 Rheumatic disorders of both mitral and tricuspid valves; E11.65 Type 2 diabetes mellitus with hyperglycemia; E78.5 Hyperlipidemia, unspecified; L98.429 Non-pressure chronic ulcer of back with unspecified severity; I25.10 Atherosclerotic heart disease of native coronary artery without angina pectoris; R32 Unspecified urinary incontinence; Z79.4 Long term (current) use of insulin; Z79.01 Long term (current) use of anticoagulants; Z79.899 Other long term (current) drug therapy; Z88.8 Allergy status to other drugs, medicaments and biological substances; Z99.2 Dependence on renal dialysis; Z88.6 Allergy status to analgesic agent; Z92.21 Personal history of antineoplastic chemotherapy; Z91.041 Radiographic dye allergy status; Z85.05 Personal history of malignant neoplasm of liver; Z99.81 Dependence on supplemental oxygen
CPT/HCPCS: 31500; 36415; 36573; 36600; 71045; 71250; 76604; 80048; 80076; 80202; 82010; 82140; 82375; 82550; 82553; 82805; 82962; 83036; 83605; 83735; 83880; 83930; 84100; 84132; 84145; 84443; 84478; 84484; 85025; 85027; 86705; 86709; 86850; 86900; 86920; 87070; 87106; 87340; 87426; 90935; 93005; 93306; 93970; 94003; 94640; 94660; 99291; A6261; C1725; J0282; J0583; J0610; J0692; J0885; J1815; J1940; J2185; J2270; J2354; J2470; J2543; J2704; J2919; J2920; J3370; J3475; J3490; J7030; J7050; J7060; J7512; P9016; J0883